=== PATIENT | male | born 1965 | race African-American/Black ===

== ENCOUNTER 2017-02-18 05:14 | Emergency (ER) | payer OTHER ==
[~2017-02-18] VITALS: Ht 175.3 cm; Wt 77.1 kg
[2017-02-18 07:34] VITALS: BP 142/60
[2017-02-18] MEDS ORDERED: traMADol HCL 50 MG TAB PO ONE (07:45)
== END 2017-02-18 07:59 | disposition home or self-care (01) ==
LOC: ER 05:14
DX: S62.627A Displaced fracture of middle phalanx of left little finger, initial encounter for closed fracture (principal); Y04.0XXA Assault by unarmed brawl or fight, initial encounter; Y93.89 Activity, other specified; Y92.89 Other specified places as the place of occurrence of the external cause; Y99.8 Other external cause status
CPT/HCPCS: 29125; 73130

== ENCOUNTER 2017-04-08 10:53 | Emergency (ER) | payer OTHER ==
[~2017-04-08] VITALS: Ht 175.3 cm; Wt 76.2 kg
[2017-04-08 13:09] VITALS: BP 129/77
[2017-04-08] MEDS ORDERED: cefTRIAXone SODIUM 250 MG VL IM ONE (13:30)
== END 2017-04-08 13:52 | disposition home or self-care (01) ==
LOC: ER 10:57
DX: N45.3 Epididymo-orchitis (principal); N50.3 Cyst of epididymis
CPT/HCPCS: 76870; 96372; 99284; J0696

== ENCOUNTER 2021-07-04 04:25 | Emergency (ER) | payer MEDICAID, OTHER ==
[~2021-07-04] VITALS: Ht 175.3 cm; Wt 77.1 kg
[2021-07-04] MEDS ORDERED: methylPREDNISolone SOD SUCC 125 MG/2 ML VL IV ONE (05:15)
[2021-07-04] MEDS ORDERED: ALBUTEROL SULF 2.5 MG/0.5ML(0.5%) NEB SOLN NEB ONE (05:15)
[2021-07-04 06:38] LABS: Basophils # (auto) 0.1 10 ^3/uL (0-0.2); Basophils % (auto) 0.5 % (0.0-2.0); Eosinophils # (auto) 0.1 10 ^3/uL (0-0.8); Eosinophils % (auto) 0.7 % (0.0-7.0); Hematocrit 44.1 % (41.0-53.0); Hemoglobin 14.3 g/dL (13.5-17.5); Lymphocytes % (auto) 10.3 % (10.0-50.0); Mean Corpuscular Hemoglobin 28.2 pg (28.0-32.0); Mean Corpuscular Hgb Conc. 32.5 g/dL (32.0-36.0); Mean Corpuscular Volume 86.7 fL (80.0-100.0); Monocytes # (auto) 0.8 10 ^3/uL (0-1.3); Monocytes % (auto) 7.7 % (0.0-12.0); Neutrophils % (auto) 80.8 % (37.0-80.0); Red Blood Cells 5.08 10^6/uL (4.5-5.90); White Blood Cell 9.9 10^3/uL (4.4-10.8)
[2021-07-04 06:54] LABS: Calcium 8.5 mg/dL (8.5-10.1); Potassium 4.3 mmol/L (3.5-5.1)
[2021-07-04 06:58] LABS: Albumin 2.6 g/dL (3.4-5.0); BUN/Creatinine Ratio 13.1
[2021-07-04 07:01] LABS: Bilirubin, Total 0.9 mg/dL (0.2-1.0); Total Protein 6.4 g/dL (6.4-8.2)
[2021-07-04 07:38] LABS: Urine Bacteria NONE SEEN /hpf (None Seen); Urine Blood Negative /uL (Negative); Urine Specific Gravity 1.014 (1.001-1.035); Urine WBC 2 /hpf (0 - 3)
[2021-07-04] MEDS ORDERED: cloNIDine HCL 0.1 MG TAB PO ONE (07:45)
[2021-07-04 08:35] VITALS: BP 188/131
== END 2021-07-04 08:52 | disposition home or self-care (01) ==
LOC: ER 04:25
DX: J44.1 Chronic obstructive pulmonary disease with (acute) exacerbation (principal); I10 Essential (primary) hypertension; R06.03 Acute respiratory distress; E11.9 Type 2 diabetes mellitus without complications; Z87.891 Personal history of nicotine dependence; Z20.822 Contact with and (suspected) exposure to COVID-19
CPT/HCPCS: 36415; 71045; 80053; 81001; 83605; 84484; 85025; 87426; 93005; 94640; 96374; 99285; J2930

== ENCOUNTER 2021-10-06 11:19 | Inpatient (IN) | payer MEDICAID ==
[~2021-10-06] VITALS: Ht 175.3 cm; Wt 73.4 kg
[2021-10-06] MEDS ORDERED: methylPREDNISolone SOD SUCC 125 MG/2 ML VL IV ONE (11:30)
[2021-10-06] MEDS ORDERED: cloNIDine HCL 0.1 MG TAB PO ONE (11:30)
[2021-10-06 12:41] LABS: Albumin 2.7 g/dL (3.4-5.0); Anion Gap 5 (5-15); Blood Urea Nitrogen 23 mg/dL (7-18); Calcium 8.9 mg/dL (8.5-10.1); Carbon Dioxide 22 mmol/L (21-32); Chloride 109 mmol/L (98-107); Glucose 126 mg/dL (74-106); Potassium 4.6 mmol/L (3.5-5.1); Sodium 136 mmol/L (136-145)
[2021-10-06 12:49] LABS: Alanine Aminotransferase 26 U/L (16-61); Alkaline Phosphatase 95 U/L (45-117); Aspartate Aminotransferase 15 U/L (15-37); BUN/Creatinine Ratio 12.3; Bilirubin, Total 0.7 mg/dL (0.2-1.0); GFR African American 48 mL/min; GFR Non-African American 40 mL/min; Total Protein 7.8 g/dL (6.4-8.2)
[2021-10-06 13:34] LABS: Urine Bacteria NONE SEEN /hpf (None Seen); Urine Blood Negative /uL (Negative); Urine Specific Gravity 1.014 (1.001-1.035); Urine WBC 5 /hpf (0 - 3)
[2021-10-06 13:54] LABS: CRP High Sensitivity > 19.0 mg/dL (< 0.3)
[2021-10-06 14:43] LABS: Eosinophils # (auto) 0 10 ^3/uL (0-0.8); Hemoglobin 15.4 g/dL (13.5-17.5); Monocytes # (auto) 0.8 10 ^3/uL (0-1.3)
[2021-10-06 14:44] LABS: Basophils # (auto) 0 10 ^3/uL (0-0.2); Basophils % (auto) 0.2 % (0.0-2.0); Hematocrit 46.2 % (41.0-53.0); Lymphocytes # (auto) 0.6 10 ^3/uL (0.4-5.4); Lymphocytes % (auto) 2.7 % (10.0-50.0); Mean Corpuscular Hemoglobin 26.3 pg (28.0-32.0); Mean Corpuscular Hgb Conc. 33.3 g/dL (32.0-36.0); Mean Corpuscular Volume 79.1 fL (80.0-100.0); Monocytes % (auto) 3.5 % (0.0-12.0); Neutrophils # (auto) 22.3 10 ^3/uL (1.6-8.6); Neutrophils % (auto) 93.6 % (37.0-80.0); Red Blood Cells 5.84 10^6/uL (4.5-5.90); Red Cell Distribution Width 16.7 % (11.8-14.3); White Blood Cell 23.9 10^3/uL (4.4-10.8)
[2021-10-06] MEDS ORDERED: ACETAMINOPHEN 325 MG TAB PO PRN (18:00)
[2021-10-06] MEDS: ALBUTEROL SULF 2.5 MG/0.5ML(0.5%) NEB SOLN NEB SCH ×2 (18:00→22:52)
[2021-10-06] MEDS: IPRATROPIUM BROM 0.5 MG/2.5ML INH SOL NEB SCH ×2 (18:00→22:52)
[2021-10-06] MEDS ORDERED: HYDROcodone-ACET 5/325MG TAB PO PRN (18:00)
[2021-10-06] MEDS ORDERED: ONDANSETRON HCL 4 MG/2 ML VIAL IV PRN (18:00)
[2021-10-06] MEDS ORDERED: NITROGLYCERIN 0.4 MG SL TAB SL PRN (18:00)
[2021-10-06] MEDS ORDERED: MORPHINE SULFATE INJECTION 2 MG/ML SYRG IV PRN ×2 (18:00)
[2021-10-06] MEDS: DOXYCYCLINE 100MG/250ML 250 ML IV SCH (20:15)
[2021-10-06 22:00] VITALS: BP 155/109
[2021-10-06] MEDS ORDERED: METF-370 PO (22:42)
[2021-10-06] MEDS ORDERED: AMLO-489 PO (22:42)
[2021-10-06] MEDS ORDERED: ASPI-543 PO (22:42)
[2021-10-06] MEDS ORDERED: ALBU108A5 IN (22:42)
[2021-10-06] MEDS ORDERED: HYDR12.56 PO (22:42)
[2021-10-07 04:57] VITALS: BP 140/79
[2021-10-07] MEDS: DOXYCYCLINE 100MG/250ML 250 ML IV SCH ×2 (05:56→18:16)
[2021-10-07 06:27] LABS: Basophils # (auto) 0 10 ^3/uL (0-0.2); Basophils % (auto) 0.1 % (0.0-2.0); Eosinophils # (auto) 0 10 ^3/uL (0-0.8); Hemoglobin 14.1 g/dL (13.5-17.5); Lymphocytes # (auto) 0.7 10 ^3/uL (0.4-5.4); Mean Corpuscular Hemoglobin 26.3 pg (28.0-32.0); Monocytes # (auto) 0.4 10 ^3/uL (0-1.3); Neutrophils % (auto) 93.3 % (37.0-80.0)
[2021-10-07 06:29] LABS: Hematocrit 42.7 % (41.0-53.0); Lymphocytes % (auto) 4.2 % (10.0-50.0); Mean Corpuscular Hgb Conc. 32.9 g/dL (32.0-36.0); Monocytes % (auto) 2.4 % (0.0-12.0); Neutrophils # (auto) 14.9 10 ^3/uL (1.6-8.6); Red Blood Cells 5.34 10^6/uL (4.5-5.90); Red Cell Distribution Width 16.2 % (11.8-14.3)
[2021-10-07 06:35] LABS: Albumin 2.5 g/dL (3.4-5.0); Calcium 8.4 mg/dL (8.5-10.1); Potassium 4.9 mmol/L (3.5-5.1)
[2021-10-07 06:39] LABS: BUN/Creatinine Ratio 16.5; Bilirubin, Total 0.4 mg/dL (0.2-1.0); Total Protein 6.5 g/dL (6.4-8.2)
[2021-10-07] MEDS: IPRATROPIUM BROM 0.5 MG/2.5ML INH SOL NEB SCH ×3 (08:41→21:45)
[2021-10-07] MEDS: ALBUTEROL SULF 2.5 MG/0.5ML(0.5%) NEB SOLN NEB SCH ×3 (08:41→21:45)
[2021-10-07 09:00] VITALS: BP 177/129
[2021-10-07] MEDS: DexAMETHasone SOD PHOS 10MG/1ML VIAL INJ IV SCH (09:27)
[2021-10-07] MEDS: ENOXAPARIN SOD 40 MG/0.4 ML SYRINGE SC SCH (09:28)
[2021-10-07] MEDS: hydrALAZINE HCL 20 MG/ML VL IV PRN ×2 (09:28→23:47)
[2021-10-07 13:00] VITALS: BP 170/102
[2021-10-07] MEDS: amLODIPine BESYLATE 5 MG TAB PO SCH (13:28)
[2021-10-07 16:06] VITALS: BP 158/109
[2021-10-07 22:00] VITALS: BP 168/114
[2021-10-08 05:00] VITALS: BP 164/113
[2021-10-08] MEDS: DOXYCYCLINE 100MG/250ML 250 ML IV SCH ×2 (05:50→17:03)
[2021-10-08] MEDS: hydrALAZINE HCL 20 MG/ML VL IV PRN (05:50)
[2021-10-08] MEDS: IPRATROPIUM BROM 0.5 MG/2.5ML INH SOL NEB SCH ×3 (06:14→14:46)
[2021-10-08] MEDS: ALBUTEROL SULF 2.5 MG/0.5ML(0.5%) NEB SOLN NEB SCH ×3 (06:14→14:46)
[2021-10-08 08:04] VITALS: BP 156/108
[2021-10-08] MEDS: DexAMETHasone SOD PHOS 10MG/1ML VIAL INJ IV SCH (09:05)
[2021-10-08] MEDS: ENOXAPARIN SOD 40 MG/0.4 ML SYRINGE SC SCH (09:06)
[2021-10-08] MEDS: amLODIPine BESYLATE 5 MG TAB PO SCH (09:06)
[2021-10-08 17:15] VITALS: BP 151/87
[2021-10-08 18:04] VITALS: BP 152/96
== END 2021-10-08 18:30 | disposition home or self-care (01) | DRG 194 ==
LOC: ER 11:19 → TELE 17:52 → TELE-WESTW 21:30
PROVIDERS: ADMIT Internal Medicine; ATTEND Internal Medicine
DX: I11.0 Hypertensive heart disease with heart failure (principal); N17.0 Acute kidney failure with tubular necrosis; E44.1 Mild protein-calorie malnutrition; I50.33 Acute on chronic diastolic (congestive) heart failure; J18.9 Pneumonia, unspecified organism; J44.1 Chronic obstructive pulmonary disease with (acute) exacerbation; Z20.822 Contact with and (suspected) exposure to COVID-19; J44.0 Chronic obstructive pulmonary disease with (acute) lower respiratory infection; F17.210 Nicotine dependence, cigarettes, uncomplicated; F12.90 Cannabis use, unspecified, uncomplicated; E11.9 Type 2 diabetes mellitus without complications; R53.81 Other malaise; Z82.49 Family history of ischemic heart disease and other diseases of the circulatory system; Z83.3 Family history of diabetes mellitus; Z71.6 Tobacco abuse counseling
CPT/HCPCS: 36415; 71045; 80053; 81001; 82728; 83880; 84484; 85025; 85379; 86141; 87426; 93005; 93306; 94640; 96365; 96375; G0378; J1100; J3490